=== PATIENT | female | born 1980 | race American Indian/Alaskan Native ===

== ENCOUNTER 2020-07-27 09:59 | Emergency (ER) | payer SELFPAY ==
[2020-07-27 11:15] LABS: Hemoglobin 6.5 gm/dl (10.1-14.3); Mean Corpuscular HGB Conc 35 % (30-34); Mean Corpuscular Volume 99 fl (79-97); Red Blood Count 1.87 M/mm3 (3.65-5.03)
[2020-07-27 11:19] LABS: Hematocrit 18.5 % (30.3-42.9); Red Cell Distribution Width 37.7 % (13.2-15.2)
[2020-07-27 11:20] LABS: Platelet Count 71 K/mm3 (140-440)
--- NOTE | 2020-07-27 12:27 | Emergency Department Report ---
ED General Adult HPI - General Chief complaint: Recheck/Abnormal Lab/Rx Stated complaint: HANDS/FEET SWELLING Time Seen by Provider: 07/27/20 11:35 Source: patient Mode of arrival: Ambulatory Limitations: No Limitations - History of Present Illness Initial comments: This is a 39-year-old female who presents with hand and feet just tight swelling for the past several weeks. 2 weeks ago patient had blood work that revealed that her hemoglobin was low. She was treated with iron and magnesium by her PCP without improvement. She denies headache, chest pain, shortness of breath. She does have fatigue. Otherwise no significant past medical history. Her PCP is Dr. Weston [phone] in [place] -: Gradual, week(s) (2) Location: left, right, upper extremity, lower extremity Consistency: constant Improves with: none Worsens with: none Associated Symptoms: other (Fatigue) - Related Data Allergies Allergy/AdvReac Type Severity Reaction Status Date / Time No Known Allergies Allergy Unverified 07/27/20 10:16 ED Review of Systems ROS: Stated complaint: HANDS/FEET SWELLING Other details as noted in HPI Comment: All other systems reviewed and negative Constitutional: denies: fever, malaise Respiratory: denies: cough Cardiovascular: denies: chest pain Gastrointestinal: denies: abdominal pain ED Past Medical Hx - Past Medical History Previous Medical History?: No - Surgical History Past Surgical History?: No - Social History Smoking Status: Never Smoker Substance Use Type: None ED Physical Exam - General Limitations: No Limitations General appearance: alert, in no apparent distress - Head Head exam: Present: atraumatic, normocephalic - Eye Eye exam: Present: normal appearance - ENT ENT exam: Present: mucous membranes moist - Neck Neck exam: Present: normal inspection, full ROM - Respiratory Respiratory exam: Present: normal lung sounds bilaterally. Absent: respiratory distress, wheezes, rales, rhonchi - Cardiovascular Cardiovascular Exam: Present: regular rate, normal rhythm, normal heart sounds. Absent: systolic murmur, diastolic murmur, rubs, gallop - GI/Abdominal GI/Abdominal exam: Present: soft, normal bowel sounds. Absent: distended, tenderness, guarding, rebound - Extremities Exam Extremities exam: Present: normal inspection - Neurological Exam Neurological exam: Present: alert, oriented X3 - Psychiatric Psychiatric exam: Present: normal affect, normal mood - Skin Skin exam: Present: warm, dry, intact, normal color. Absent: rash ED Course Vital Signs 07/27/20 07/27/20 07/27/20 10:14 11:45 12:00 Temperature 99.4 F Pulse Rate 94 H 77 77 Respiratory 18 15 15 Rate Blood Pressure 120/75 115/66 109/65 O2 Sat by Pulse 100 99 100 Oximetry ED Medical Decision Making - Lab Data Result diagrams: 07/27/20 10:29 - Medical Decision Making Patient presents with anemia, hand and foot swelling. The hand and foot swelling not obvious on exam. However patient's CBC reveals pancytopenia with macrocytosis. I suspect folate or B12 deficiency. I have referred patient to trading assistant. I also recommended outpatient testing for viral infection such as HIV hepatitis, also recommended folate B12 levels in outpatient setting. I spoke with patient's PCP via phone. He already has referred patient to trading assistant. Critical care attestation.: If time is entered above; I have spent that time in minutes in the direct care of this critically ill patient, excluding procedure time. ED Disposition Clinical Impression: Vitamin deficiency, Pancytopenia Disposition: [id number] TO HOME OR SELFCARE Is pt being admited?: No Does the pt Need Aspirin: No Condition: Stable Additional Instructions: Please have your primary doctor test for folate and B12 deficiencies. Please also have your doctor test for viral infections. You have been referred to a trading assistant who is a specialist in blood disorders. Please call [facility] for an appointment. You may also have your primary doctor referred you to a trading assistant. Referrals: ARIANA HUGO DO [Staff Physician] - 3-5 Days
[2020-07-27 13:40] VITALS: BP 111/63
== END 2020-07-27 13:30 | disposition home or self-care (01) ==
LOC: ED 09:59
DX: E56.9 Vitamin deficiency, unspecified (principal); D61.818 Other pancytopenia
CPT/HCPCS: 36415; 85027; 99283